=== PATIENT | female | born 1940 | race Caucasian/White ===

== ENCOUNTER 2018-04-01 23:36 | Inpatient (IN) | payer MEDICARE, OTHER ==
[~2018-04-01] VITALS: Ht 170.2 cm; Wt 142.5 kg
[~2018-04-01 23:36] MED LIST: ASPIR 8181 MG; CALCIUM CARBON500 MG PO; FLORASTOR250 MG; GABAPENTIN100 MG; LISINOPRIL10 MG PO; NEURONTIN100 MG PO; ZYRTEC10 M3
--- OUTSIDE RECORDS SUMMARY | 2018-04-01 23:38 | XMS REPORT | Encounter Summary ---
Author Organization Unknown Address [address] [place] [address] Phone [phone] Care Team Providers Care Director Oracle Name Role Phone Oscar Meyers 3 [phone] Reason for Visit Medical Complaint Instructions 1. Acute sinusitis sinusitis: care instructions doxycycline hyclate 100 mg tablet 2. Productive cough benzonatate 200 mg capsule 3. Essential hypertension high blood pressure: care instructions 4. Body mass index 30+ - obesity body mass index: care instructions Discussion Note Pt is in NAD; Verbalizes understanding of all instructions with no questions at this time. Plan of Care Patient Instructions Stop Robitussin. Take fluticasone over the counter as needed for congestion. [place] one spray in each nostril twice a day. Take a warm, steamy shower, blow your nose thereafter, and spray in each nostril. Tilt your head up for about 10 seconds and breath through your mouth. Do not sniff or snort the medication in or else the medication will go to your throat and not be absorbed appropriately. Take over the counter Xyzal as directed by Dr Meyers for allergy like symptoms like runny nose, sneezing and watery eyes. Start antibiotic as directed and wear sunscreen if symptoms do not improve in 5-7 days. Take medications as prescribed and follow up with a PCP within a week if symptoms worsen as discussed. Recommend monitor BP at home and document, bring BP log to PCP for review. Recommend follow a low sodium/fat/carb diet and exercise as tolerated. Reminders Provider Appointments None recorded. Lab None recorded. Referral None recorded. Procedures None recorded. Surgeries None recorded. Imaging None recorded. Medications Name Start Date amlodipine 5 mg tablet aspirin 81 mg tablet,delayed release benzonatate 200 mg capsule Take 1 capsule 3 times a day by oral route as needed. cranberry 400 mg capsule Take by oral route. d-mannose doxycycline hyclate 100 mg tablet Take 1 tablet twice a day by oral route as directed for 10 days. fluticasone 50 mcg/actuation nasal spray,suspension gabapentin 100 mg capsule losartan 50 mg tablet Xyzal 5 mg tablet Take 1 tablet every day by oral route. Medications Administered None recorded. Vitals Height Weight BMI Blood Pressure 5 ft 6 in 235 lbs 37.9 kg/m2 129/69 mm[Hg] Lab Results None recorded. Allergies Code Code System Name Reaction Severity Status Onset 2669 RxNorm Codeine Angioedema Active Penicillins Angioedema Active Problems Name Status Onset Date Source Body Mass Index 30+ - Obesity Active 02/27/2018 Neuropathy Active 02/27/2018 Essential Hypertension Active 02/27/2018 Acute Sinusitis Active 02/27/2018 Productive Cough Active 02/27/2018 Procedures Date Name Performed by Tonsillectomy and Adenoidectomy Information not available Cholecystectomy Information not available Vaccine List None recorded. Social History Smoking Status Never Smoker Past Encounters 02/27/2018 Acute Sinusitis; Productive Cough; Essential Hypertension; Body Mass Index 30+ - Obesity Adriana Woods, [facility]-C: [address] [place] [address], Ph. History of Present Illness Qsien-Tnmgfqypki-Cdgqmfu Reported By: Patient HPI: Location: head/sinuses, chest. Quality: productive cough, nasal/sinus congestion. Duration: 2days. Severity: moderate. Onset/Timing: gradual; recurrent. Context: no sick contacts, no foreign travel, non-smoker; Pt has h/o chronic sinusitis. Modifying factors: OTC medication. Associated Symptoms: no sputum production, no shortness of breath, no wheezing, no change in number of pillows needed to sleep at night, no sweats, no significant weight gain, no significant weight loss, no morning cough, no sore throat, no vomiting, no diarrhea, no rash, no nausea, no fever, no muscle aches, no headache; nasal congestion, sinus pressure and pain, purulent nasal drainage, hoarseness, and productive cough Review of Systems:ROS as noted in the HPI Review of Systems Basic Reported By: Patient Physical Exam Adult Basic, Adult Female Complete Reported By: Patient Constitutional: General Appearance: obese. Level of Distress: NAD. Ambulation: in wheelchair Psychiatric: Mental Status: active and alert. Orientation: to time, to place, to person Aul-Lome-Jfnxw-Throat: Ears: no lesions on external ear, no outer ear tenderness, EACs clear, TMs clear. Nose: no lesions on external nose, nares patent, no septal deviation, nasal passages clear, sinus tenderness. Lips, Teeth, and Gums: no mouth or lip ulcers, no bleeding gums, normal dentition. Oropharynx: moist mucous membranes, no erythema, no exudates, tonsils absent Neck: Lymph Nodes: no cervical LAD Lungs: Respiratory effort: no dyspnea, no tachypnea, no use of accessory muscles, no intercostal retractions. Auscultation: breath sounds normal Cardiovascular: Heart Auscultation: RRR, no murmurs Neurologic: Gait and Station: normal gait, normal station
--- OUTSIDE RECORDS SUMMARY | 2018-04-01 23:38 | XMS REPORT | Encounter Summary ---
Author Organization Unknown Address [address] [place] [address] Phone [phone] Reason for Visit Medical Complaint Instructions 1. Acute sinusitis sinusitis: care instructions azithromycin 250 mg tablet 2. Pain in throat sore throat: care instructions rapid strep group A, throat 3. Feeling feverish rapid flu (A+B) Discussion Note: None recorded. Plan of Care Patient Instructions consider a trial of flonase and zyrtec if you havent already. follow up pcp Reminders Provider Appointments None recorded. Lab Rapid Strep Group a, Throat 12/28/2016 [facility] Rapid Flu (A+B) 12/28/2016 [facility] Referral None recorded. Procedures None recorded. Surgeries None recorded. Imaging None recorded. Medications Name Start Date aspirin 81 mg tablet,delayed release azithromycin 250 mg tablet TAKE 2 TABLETS (500 MG) BY ORAL ROUTE ONCE DAILY FOR 1 DAY THEN 1 TABLET (250 MG) BY ORAL ROUTE ONCE DAILY FOR 4 DAYS gabapentin 100 mg capsule lisinopril 20 mg tablet Medications Administered None recorded. Vitals Height Weight BMI Blood Pressure 5 ft 6 in 235 lbs 37.9 kg/m2 132/80 mm[Hg] Lab Results Date Name Specimen Result Interpretation Description Value Range Status Address Rapid Flu (A+B) Influenza a negative [facility]: [address] [place] [address] Influenza B negative [facility]: [address] [place] [address] Rapid Strep Group a, Throat Result negative [facility]: [address] [place] [address] Swab Location Left and Right tonsillar pillars [facility]: [address] [place] [address] Allergies Code Code System Name Reaction Severity Status Onset 2670 RxNorm Codeine Angioedema Active Penicillins Angioedema Active Problems None recorded. Procedures Date Name Performed by Tonsillectomy and Adenoidectomy Information not available Cholecystectomy Information not available Vaccine List None recorded. Social History Smoking Status Never Smoker Past Encounters 12/28/2016 Acute Sinusitis; Pain in Throat; Feeling Feverish EMERITA Marti-C: [address] [place] [address], Ph. History of Present Illness Umbth-Xnlalmiaqc-Kbkaxui Reported By: Patient HPI: Location: head/sinuses. Quality: productive cough, colored phlegm, nasal/sinus congestion, dry cough. Duration: 5days. Severity: moderate. Onset/Timing: gradual. Context: no sick contacts, no foreign travel, non-smoker. Modifying factors: OTC medication. Associated Symptoms: no shortness of breath, no wheezing, no change in number of pillows needed to sleep at night, no sweats, no significant weight gain, no significant weight loss, no morning cough, no sore throat, no vomiting, no diarrhea, no rash, no nausea, no fever, no muscle aches, no headache, yellow sputum Review of Systems:ROS as noted in the HPI Review of Systems Basic Reported By: Patient Physical Exam Adult Basic, Adult Female Complete Reported By: Patient Constitutional: General Appearance: obese. Level of Distress: NAD. Ambulation: ambulating normally Psychiatric: Mental Status: active and alert Eyes: Lids and Conjunctivae: non-injected, no discharge Ivb-Suea-Cgrst-Throat: Ears: no lesions on external ear, no outer ear tenderness, EACs clear, TMs clear. Hearing: no hearing loss. Nose: no lesions on external nose, sinus tenderness, nasal discharge--purulent; congestion. Lips, Teeth, and Gums: no mouth or lip ulcers. Oropharynx: moist mucous membranes, no erythema, no exudates, tonsils not enlarged Neck: Neck: trachea midline. Lymph Nodes: no cervical LAD Lungs: Respiratory effort: no dyspnea, no tachypnea, no use of accessory muscles, no intercostal retractions. Auscultation: breath sounds normal Cardiovascular: Heart Auscultation: RRR, no murmurs
--- OUTSIDE RECORDS SUMMARY | 2018-04-01 23:38 | XMS REPORT | Continuity of Care Document ---
Author Author [facility] Address Unknown Phone Unavailable Problems Problem Status Onset Date Classification Date Reported Comments Source Body mass index 30+ - obesity 02/27/2018 Diagnosis 02/27/2018 [facility] Essential hypertension 02/27/2018 Diagnosis 02/27/2018 [facility] Productive cough 02/27/2018 Diagnosis 02/27/2018 [facility] Acute sinusitis 02/27/2018 Diagnosis 02/27/2018 [facility] Body Mass Index 30+ - Obesity 02/27/2018 Problem 02/27/2018 [facility] Neuropathy 02/27/2018 Problem 02/27/2018 [facility] Essential Hypertension 02/27/2018 Problem 02/27/2018 [facility] Acute Sinusitis 02/27/2018 Problem 02/27/2018 [facility] Productive Cough 02/27/2018 Problem 02/27/2018 [facility] Pain in throat 12/28/2016 Diagnosis 12/28/2016 [facility] Feeling feverish 12/28/2016 Diagnosis 12/28/2016 [facility] Medications Medication Details Route Status Patient Instructions Ordering Provider Order Date Source Amlodipine 5 MG Oral Tablet amlodipine 5 mg tablet Active [facility] Aspirin 81 MG Delayed Release Oral Tablet aspirin 81 mg tablet,delayed release Active [facility] benzonatate 200 MG Oral Capsule benzonatate 200 mg capsule Take 1 capsule 3 times a day by oral route as needed. Active [facility] Cranberry preparation 400 MG Oral Capsule cranberry 400 mg capsule Take by oral route. Active [facility] d-mannose d-mannose Active [facility] doxycycline hyclate 100 MG Oral Tablet doxycycline hyclate 100 mg tablet Take 1 tablet twice a day by oral route as directed for 10 days. Active [facility] Fluticasone propionate 0.05 MG/ACTUAT Metered Dose Nasal [place] fluticasone 50 mcg/actuation nasal spray,suspension Active [facility] gabapentin 100 MG Oral Capsule gabapentin 100 mg capsule Active [facility] Losartan Potassium 50 MG Oral Tablet losartan 50 mg tablet Active [facility] levocetirizine dihydrochloride 5 MG Oral Tablet [Xyzal] Xyzal 5 mg tablet Take 1 tablet every day by oral route. Active [facility] Azithromycin 250 MG Oral Tablet azithromycin 250 mg tablet TAKE 2 TABLETS (500 MG) BY ORAL ROUTE ONCE DAILY FOR 1 DAY THEN 1 TABLET (250 MG) BY ORAL ROUTE ONCE DAILY FOR 4 DAYS Active [facility] Lisinopril 20 MG Oral Tablet lisinopril 20 mg tablet Active [facility] Allergies, Adverse Reactions, Alerts Substance Category Reaction Severity Reaction type Status Date Reported Comments Source Penicillins Angioedema Allergy to substance 12/28/2016 [facility] Codeine Angioedema Allergy to substance 12/28/2016 [facility] Immunizations Immunization Date Given Site Status Last Updated Comments Source Results Order Name Results Value Reference Range Date Interpretation Comments Source Influenza A negative 12/28/2016 [facility] Influenza B negative 12/28/2016 [facility] RESULT negative 12/28/2016 [facility] SWAB LOCATION Left and Right tonsillar pillars 12/28/2016 [facility] Vital Signs Vital Sign Value Date Comments Source Diastolic (mm Hg) 69 02/27/2018 [facility] Height 66 02/27/2018 [facility] Systolic (mm Hg) 129 02/27/2018 [facility] Weight 235 02/27/2018 [facility] Diastolic (mm Hg) 80 12/28/2016 [facility] Height 66 12/28/2016 [facility] Systolic (mm Hg) 132 12/28/2016 [facility] Weight 235 12/28/2016 [facility] Encounters Location Location Details Encounter Type Encounter Number Reason For Visit Attending Provider ADM Date DC Date Status Source [place] - [facility] - [id number] Celeste-C: [address] [place] [address], Ph. [phone] [id number] William Bartlett 12/28/2016 [facility] [place] - [facility] - [id number] Danielle-C: [address] [place] [address], Ph. [id number] Adriana Woods 02/27/2018 [facility] Procedures Procedure Code Date Perfomer Comments Source Tonsillectomy and Adenoidectomy [facility] Cholecystectomy [facility]
--- OUTSIDE RECORDS SUMMARY | 2018-04-01 23:39 | XMS REPORT ---
Author Author [facility] Address Unknown Phone Unavailable Care Team Providers Care Tobacco Packer Name Role Phone NGHIA BERNAL Unavailable Unavailable Problems This patient has no known problems. Allergies, Adverse Reactions, Alerts This patient has no known allergies or adverse reactions. Medications This patient has no known medications. Results Test Description Test Time Test Comments Text Results Atomic Results Result Comments CHEST XRAY LINE PLACEMENT [place] [address] Patient Name: SARAH VILLA MR #: [id number] : 1940 Age/Sex: 76/F Req #: [id number] Adm Physician: NGHIA BERNAL MD Ordered by: AMINA ABARCA MD Report #: [id number] Location: [facility] Room/Bed: [facility] Procedure: [id number] DX/CHEST XRAY LINE PLACEMENT Exam Date: 01/09/17 Exam Time: 2036 REPORT STATUS: Signed CHEST XRAY LINE PLACEMENT, 01/09/2017 8:30 PM Technique: CHEST XRAY LINE PLACEMENT Comparison: 01/05/2017 Clinical history: PICC line placement Findings: Limited by body habitus and portable technique. Impression: 1. Lines/Tubes: Right PICC placement tip overlying the distal SVC. 2. Stable enlarged cardiomediastinal silhouette. 3. Central vascular congestion. 3. No effusion or pneumothorax. Signed by: Dr Luis Pineda MD on 01/09/2017 8:54 PM Dictated By: LUIS PINEDA MD 53 Transcribed By: CICI on 01/09/172053 COPY TO: AMINA ABARCA MD CHEST SINGLE (PORTABLE) [place] [id number] Patient Name: SARAH VILLA MR #: [id number] : 1940 Age/Sex: 76/F Req #: [id number] Adm Physician: Ordered by: EDDA ZEPEDA MD Report #: [id number] Location: ER Room/Bed: Procedure: [id number] DX/CHEST SINGLE (PORTABLE) Exam Date: 01/06/17 Exam Time: 0100 REPORT STATUS: Signed CHEST SINGLE (PORTABLE), 01/06/2017 12:23 AM Technique: CHEST SINGLE (PORTABLE) Comparison: 04/16/2016 Clinical history: Weakness Findings: See Impression Impression: 1. Stable mildly enlarged cardiomediastinal silhouette on portable technique. 2. No consolidation. 3. No pleural effusion or pneumothorax. Signed by: Dr Luis Pineda MD on 01/06/2017 1:44 AM Dictated By: LUIS PINEDA MD 3 Transcribed By: CICI on 01/06/17143 COPY TO: EDDA ZEPEDA MD
[2018-04-02] VITALS (7 sets, daily range): BP systolic 128–159; BP diastolic 60–68
[2018-04-02] MEDS ORDERED: MULTI-VITAMIN1 EACH PO (00:20)
[2018-04-02] MEDS ORDERED: LO-DOSE ASPIRIN81 MG PO (00:20)
[2018-04-02] MEDS ORDERED: LOSARTAN POTASS50 MG PO (00:20)
[2018-04-02] MEDS ORDERED: FLUTICASONE PRO16 GM (00:20)
[2018-04-02] MEDS ORDERED: AMLODIPINE BESYL5 MG PO (00:20)
[2018-04-02] MEDS ORDERED: GABAPENTIN100 MG PO (00:20)
[2018-04-02 00:54] LABS: BASOPHILS % 0.3 % (0.0-1.0); EOSINOPHILS # (AUTO) 0.1 (0.0-0.4); EOSINOPHILS % 0.6 % (0.0-6.0); HEMATOCRIT 38.1 % (34.2-44.1); HEMOGLOBIN 12.9 g/dL (12.0-16.0); LYMPHOCYTES # (AUTO) 1.6 (1.0-3.2); LYMPHOCYTES % 11.4 % (18.0-39.1); MEAN CORPUSCULAR HEMOGLOBIN 31.9 pg (28-32); MEAN CORPUSCULAR HGB CONC 33.9 g/dL (31-35); MEAN CORPUSCULAR VOLUME 94.1 fL (81-99); MONOCYTES # (AUTO) 1.2 (0.2-0.8); MONOCYTES % 8.1 % (4.4-11.3); NEUTROPHILS # (AUTO) 11.2 (2.1-6.9); NEUTROPHILS % 79.3 % (38.7-80.0); PLATELET COUNT 275 x10e3/uL (140-360); RED BLOOD COUNT 4.05 x10e6/uL (3.6-5.1); RED CELL DISTRIBUTION WIDTH 13.7 % (11.7-14.4)
--- NOTE | 2018-04-02 01:04 | NUR ---
IN AND OUT CATH DONE, SPECIMEN TO LAB, URINE WICK IN PLACE
[2018-04-02 01:09] LABS: BILIRUBIN,URINE NEGATIVE (NEGATIVE); CLARITY,URINE CLEAR (CLEAR); COLOR,URINE YELLOW (YELLOW); KETONES,URINE NEGATIVE (NEGATIVE); LEUKOCYTE ESTERASE ,URINE 2+ (NEGATIVE); NITRITE,URINE POSITIVE (NEGATIVE); PROTEIN,URINE DIPSTICK NEGATIVE (NEGATIVE); URINE UROBILINOGEN 0.2 mg/dL (0.2 - 1)
[2018-04-02 01:12] LABS: ALBUMIN 3.6 g/dL (3.5-5.0); ALBUMIN/GLOBULIN RATIO 1.1 (0.8-2.0); ANION GAP 14.1 mmol/L (8-16); CALCIUM 9.1 mg/dL (8.4-10.2); CREATININE, SERUM 0.93 mg/dL (0.57-1.11); POTASSIUM 4.1 mmol/L (3.5-5.1)
[2018-04-02 01:20] LABS: RBC,URINE 0-5 /HPF (0-5); WBC,URINE (MAN) >50 /HPF (0-5)
[2018-04-02 01:21] LABS: BACTERIA,URINE MANY /HPF; EPITHELIAL CELLS,URINE RARE /LPF
--- NOTE | 2018-04-02 01:28 | Diagnostic Imaging Report ---
EXAMINATION: CHEST SINGLE (PORTABLE) INDICATION: Concern for pneumonia. COMPARISON: Chest x-ray 01/06/2017 FINDINGS: AP view TUBES and LINES: None. LUNGS: Lungs are well inflated. Lungs are clear. There is no evidence of pneumonia or pulmonary edema. PLEURA: No pleural effusion or pneumothorax. HEART AND MEDIASTINUM: Stable mild enlargement of the cardiac silhouette. BONES AND SOFT TISSUES: No acute osseous lesion. Soft tissues are unremarkable. UPPER ABDOMEN: No free air under the diaphragm. IMPRESSION: No acute thoracic abnormality. Signed by: DR. Matthew Penny MD on 04/02/2018 1:25 AM
[2018-04-02] MEDS: CEFTRIAXONE SOD 1 GM/NS 50 ML 50 ML IV SCH (01:44)
[2018-04-02] MEDS ORDERED: SODIUM CHLORIDE 0.9% 1000ML 1,000 ML ONE (02:09)
[2018-04-02] MEDS ORDERED: SODIUM CHLORIDE 0.9% 1000ML 1,000 ML IV STA (02:12)
--- NOTE | 2018-04-02 02:13 | NUR ---
MD AWARE OF 92/44 BP, NS BOLUS STARTED. MD TO RE-EVAL AFTER FIRST 500CC INFUSED, FAMILY AND PT AWARE TO PUSH CALL RED WHEN 500CC INFUSED.
--- NOTE | 2018-04-02 07:40 | NUR ---
patient resting in bed, AAOX3, Not in any distress, denies any pain, call light in reach, helped her to re position
[2018-04-02] MEDS: LOSARTAN POTASSIUM 100 MG TAB PO SCH (11:10)
[2018-04-02] MEDS: AMLODIPINE BESYLATE 5 MG TAB PO SCH (11:20)
[2018-04-02] MEDS: FLUTICASONE PROPIONATE NASAL SPRAY NS SCH (12:25)
[2018-04-02] MEDS: ASPIRIN 81 MG ENTERIC COATED PO SCH (12:25)
[2018-04-02] MEDS: GABAPENTIN 100 MG CAP PO SCH (16:32)
--- NOTE | 2018-04-02 19:22 | NUR ---
Report received and walking rounds complete. Pt resting in bed and in no apparent distress. Pure wick cath to suction in place. All safety measures ensured, bed alarm on, and pt call kincaid near.
[2018-04-02] MEDS: ACETAMINOPHEN 325 MG TAB PO PRN (20:56)
[2018-04-03] VITALS (7 sets, daily range): BP systolic 127–170; BP diastolic 59–83
[2018-04-03] MEDS ORDERED: SODIUM CHLORIDE 0.9% 250ML 250 ML ONE (01:15)
[2018-04-03] MEDS: CEFTRIAXONE SOD 1 GM/NS 50 ML 50 ML IV SCH (01:34)
[2018-04-03] MEDS: AMLODIPINE BESYLATE 5 MG TAB PO SCH (09:33)
[2018-04-03] MEDS: FLUTICASONE PROPIONATE NASAL SPRAY NS SCH (09:33)
[2018-04-03] MEDS: GABAPENTIN 100 MG CAP PO SCH ×2 (09:33→16:49)
[2018-04-03] MEDS: ASPIRIN 81 MG ENTERIC COATED PO SCH (09:33)
[2018-04-03] MEDS: MULTIVITAMINS/MINERALS TAB PO SCH (09:33)
[2018-04-03] MEDS: LOSARTAN POTASSIUM 100 MG TAB PO SCH (09:33)
[2018-04-03] MEDS ORDERED: TRAMADOL HCL 50 MG TAB PO PRN (10:45)
--- NOTE | 2018-04-03 16:50 | NUR ---
Patient is cooperative and alert and oriented x 3.
[2018-04-03] MEDS: ACETAMINOPHEN 325 MG TAB PO PRN (22:21)
[2018-04-04] VITALS (9 sets, daily range): BP systolic 152–181; BP diastolic 64–79
[2018-04-04] MEDS: CEFTRIAXONE SOD 1 GM/NS 50 ML 50 ML IV SCH (01:30)
[2018-04-04 05:08] LABS: BASOPHILS % 0.3 % (0.0-1.0); EOSINOPHILS # (AUTO) 0.2 (0.0-0.4); EOSINOPHILS % 2.9 % (0.0-6.0); HEMATOCRIT 33.4 % (34.2-44.1); HEMOGLOBIN 11.9 g/dL (12.0-16.0); LYMPHOCYTES # (AUTO) 1.7 (1.0-3.2); LYMPHOCYTES % 22.8 % (18.0-39.1); MEAN CORPUSCULAR HEMOGLOBIN 32.9 pg (28-32); MEAN CORPUSCULAR HGB CONC 35.6 g/dL (31-35); MEAN CORPUSCULAR VOLUME 92.3 fL (81-99); MONOCYTES # (AUTO) 0.8 (0.2-0.8); MONOCYTES % 10.6 % (4.4-11.3); NEUTROPHILS # (AUTO) 4.6 (2.1-6.9); NEUTROPHILS % 63.1 % (38.7-80.0); PLATELET COUNT 233 x10e3/uL (140-360); RED BLOOD COUNT 3.62 x10e6/uL (3.6-5.1); RED CELL DISTRIBUTION WIDTH 13.7 % (11.7-14.4)
[2018-04-04 05:29] LABS: BLOOD UREA NITROGEN 11 mg/dL (7-26); BUN/CREATININE RATIO 14 (6-25); CALCIUM 8.8 mg/dL (8.4-10.2); CARBON DIOXIDE 26 mmol/L (22-29); CHLORIDE 103 mmol/L (98-107); CREATININE, SERUM 0.76 mg/dL (0.57-1.11); EST GLOMERULAR FILTRATION RATE > 60 ML/MIN (60-); GLUCOSE 99 mg/dL (74-118); SODIUM 138 mmol/L (136-145)
[2018-04-04] MEDS: ASPIRIN 81 MG ENTERIC COATED PO SCH (09:04)
[2018-04-04] MEDS: GABAPENTIN 100 MG CAP PO SCH ×2 (09:04→18:15)
[2018-04-04] MEDS: LOSARTAN POTASSIUM 100 MG TAB PO SCH (09:05)
[2018-04-04] MEDS: AMLODIPINE BESYLATE 5 MG TAB PO SCH (09:05)
[2018-04-04] MEDS: MULTIVITAMINS/MINERALS TAB PO SCH (09:05)
--- NOTE | 2018-04-04 09:07 | NUR ---
SOCIAL WORK INITIAL ASSESSMENT Colon Therapist to bedside to discuss plan of care with patient/family. CM/SW role and care transitions discussed. Anticipated discharge plan discussed along with duration of care. CM/SW discussed patients right to make decisions in care. CM/SW work hours given. Patient lives: IN HOUSE WITH FAMILY Admit/Transfer: VIA ED FROM HOME POA/Emergency contact: DAUGHTER MARTÍN [phone] Current/Previous Home Health: [facility] PCP/Follow-up Care: [facility] Current/Previous DME: [employer] Other Services: NONE Employment Status: RETIRED Areas of Concerns: NONE Referral Needs: NONE Education Needs: NONE IMM/KYLE given and signed (if applicable): KYLE Goal for discharge: RETURN HOME INDEPENDENTLY CM/SW left business card at the bedside with contact information. Name and number was also written on the patients whiteboard. Patient verbalized understanding of discussion. CM will follow-up with ongoing discharge and transition of care needs.
--- NOTE | 2018-04-04 09:08 | NUR ---
SOCIAL WORK INITIAL ASSESSMENT Family Services Coordinator to bedside to discuss plan of care with patient/family. CM/SW role and care transitions discussed. Anticipated discharge plan discussed along with duration of care. CM/SW discussed patients right to make decisions in care. CM/SW work hours given. Patient lives: IN HOUSE WITH MOTHER Admit/Transfer: VIA ED POA/Emergency contact: MOTHER IS EVER [phone] Current/Previous Home Health: NONE PCP/Follow-up Care: RAMÓN BUT DUE TO NO INSURANCE NOT CURRENTLY A PT Current/Previous DME: NONE Other Services: NONE Employment Status: CURRENTLY UNEMPLOYED Areas of Concerns: REHAB OPTIONS Referral Needs: GAVE PACKET OF INFORMATION WITH [employer] FOR ASSISTANCE WITH LOW TO NO INCOME TO PATIENT. RESOURCES THAT PATIENT MAY BE ABLE TO FOLLOW UP UPON DISCHARGE. PT EDUCATED ON EACH RESOURCE AND UNDERSTANDING HOW TO FOLLOW UP TO SEE IF QUALIFIED FOR EACH RESOURCE. Education Needs: [employer] IMM/KYLE given and signed (if applicable): NA Goal for discharge: RETURN HOME WITH MOTHER CM/SW left business card at the bedside with contact information. Name and number was also written on the patients whiteboard. Patient verbalized understanding of discussion. CM will follow-up with ongoing discharge and transition of care needs. Addendum: 04/04/18 at 1212 by Yumiko Marx this is incorrect information
[2018-04-04] MEDS: FLUTICASONE PROPIONATE NASAL SPRAY NS SCH (09:15)
[2018-04-04] MEDS ORDERED: MAGNESIUM HYDROXIDE 30 ML UDC PO PRN (12:45)
--- NOTE | 2018-04-04 20:45 | NUR ---
Received Pt lying in bed, HOB 45 degrees. Alert to name. Denies pain at this time. Wick catheter in place and draining, 70ml dark lu urine noted. Family at bedside. Call kincaid within reach.
[2018-04-05] VITALS: BP 141/64
[2018-04-05] MEDS: CEFTRIAXONE SOD 1 GM/NS 50 ML 50 ML IV SCH (02:02)
[2018-04-05 05:20] VITALS: BP 156/69
--- NOTE | 2018-04-05 07:01 | NUR ---
Spoke with Dr. Galdamez regarding lab results ESBL in urine. Ordered Meropenem 1gm IV every 12 hours.
[2018-04-05] MEDS ORDERED: MEROPENEM 1GM 100 ML IV SCH (07:30)
[2018-04-05 07:35] VITALS: BP 160/71
--- NOTE | 2018-04-05 07:35 | NUR ---
PATIENT IN BED RESTING WITH NO RESPIRATORY DISTRESS. NEW IV ANTIBIOTIC STARTED ORDERED. ON ISOLATION FOR ESBL IN URINE. BED IN LOWER POSITION, CALL LIGHT AT REACH.
[2018-04-05 07:37] VITALS: BP 160/71
[2018-04-05] MEDS: GABAPENTIN 100 MG CAP PO SCH ×2 (09:16→17:03)
[2018-04-05] MEDS: MULTIVITAMINS/MINERALS TAB PO SCH (09:16)
[2018-04-05] MEDS: ASPIRIN 81 MG ENTERIC COATED PO SCH (09:16)
[2018-04-05] MEDS: FLUTICASONE PROPIONATE NASAL SPRAY NS SCH (09:16)
[2018-04-05] MEDS: LOSARTAN POTASSIUM 100 MG TAB PO SCH (09:16)
[2018-04-05] MEDS: AMLODIPINE BESYLATE 5 MG TAB PO SCH (09:16)
[2018-04-05] MEDS ORDERED: MAGNESIUM HYDROXIDE 30 ML UDC PO ONE (10:30)
[2018-04-05] MEDS: ACETAMINOPHEN 325 MG TAB PO PRN (11:05)
--- NOTE | 2018-04-05 11:09 | NUR ---
PATIENT C/O CONSTIPATION, NOTIFIED. NEW ORDER RECEIVED AND IMPLEMENTED.
[2018-04-05 11:29] VITALS: BP 177/74
--- NOTE | 2018-04-05 14:00 | NUR ---
Visit made by the Spiritual Care Department Pastoral Visitor, Bernadine Kohli. PV provided pastoral presence, prayer, hospitality, and supportive listening. Pastoral Visitor informed pt/family of the scope of [facility] and availability. MARCELLE PAT Discharge Rn Spiritual Care Department O: [phone] Pager: [phone] ([phone] number calling from)
--- NOTE | 2018-04-05 15:28 | NUR ---
[facility] eval ordered today. Pt signed choice letter earlier for [facility] and Shonna Hollins was notified. Pt has been accepted and will be going to room [address] Dr[address] Nancy Jett accepting. Notified nurse Esdras RN and PAKO Santos RN Initiated MOT and pt signed, and he signed ambulance choice letter. Paper work left with Esdras EDMONDSON. Transferring to via EMS to : [address] [place], [place] [address] fax [phone] Marj Hollins, liaison: [phone]
--- NOTE | 2018-04-05 15:32 | NUR ---
PATIENT EXERCISED IN ROOM WITH PHYSICAL THERAPY. REPOSITIONED IN BED WITH CALL LIGHT AT REACH.
[2018-04-05 15:58] VITALS: BP 154/68
--- NOTE | 2018-04-05 18:51 | NUR ---
PATIENT TRANSFERRED TO [facility]. REPORT CALLED AND GIVEN TO RECEIVING NURSE. IV TO RIGHT FOREARM INTACT AND PATENT. PATIENT' AWARE OF TRANSFER. ALL PERSONAL ITEMS TAKEN WITH PATIENT. LEFT UNIT ON STRETCHER PER AMBULANCE
== END 2018-04-05 18:50 | DRG 872 ==
LOC: ER 23:36 → INTOOBSV 04-02 01:52 → ERHOLD 04-02 01:52 → IMCU 04-02 03:39 → OBSVTOIN 04-05 01:52
DX: A41.9 Sepsis, unspecified organism (principal); N30.01 Acute cystitis with hematuria; L03.116 Cellulitis of left lower limb; Z68.42 Body mass index [BMI] 45.0-49.9, adult; G62.9 Polyneuropathy, unspecified; Z88.0 Allergy status to penicillin; Z88.2 Allergy status to sulfonamides; Z88.8 Allergy status to other drugs, medicaments and biological substances; I10 Essential (primary) hypertension; E66.01 Morbid (severe) obesity due to excess calories; B96.20 Unspecified Escherichia coli [E. coli] as the cause of diseases classified elsewhere; Z16.12 Extended spectrum beta lactamase (ESBL) resistance
CPT/HCPCS: 36415; 71045; 80048; 80053; 81001; 85025; 87086; 87186; 96365; 97139; 99284; G0378; J0696; J7030; J7050

== ENCOUNTER 2019-12-18 09:36 | Observation (INO) | payer MEDICARE, OTHER ==
[~2019-12-18] VITALS: Ht 170.2 cm; Wt 142.4 kg
[~2019-12-18 09:36] MED LIST changes: +AMLODIPINE BESYL5 MG PO; +FLUTICASONE PRO16 GM; +GABAPENTIN100 MG PO; +LO-DOSE ASPIRIN81 MG PO; +LOSARTAN POTASS50 MG PO; +MULTI-VITAMIN1 EACH PO
[2019-12-18 11:12] LABS: CLARITY,URINE CLEAR (CLEAR); COLOR,URINE YELLOW (YELLOW); LEUKOCYTE ESTERASE ,URINE TRACE (NEGATIVE)
[2019-12-18 11:13] LABS: BILIRUBIN,URINE NEGATIVE (NEGATIVE); KETONES,URINE NEGATIVE (NEGATIVE); NITRITE,URINE POSITIVE (NEGATIVE); PROTEIN,URINE DIPSTICK NEGATIVE (NEGATIVE); URINE UROBILINOGEN 0.2 mg/dL (0.2 - 1)
[2019-12-18 11:33] LABS: BACTERIA,URINE FEW /HPF; EPITHELIAL CELLS,URINE FEW /LPF; RBC,URINE 0-5 /HPF (0-5); WBC,URINE (MAN) 0-5 /HPF (0-5)
[2019-12-18] MEDS ORDERED: CEPHALEXIN 500 MG CAP PO ONE (12:30)
[2019-12-18 13:30] LABS: BASOPHILS % 0.3 % (0.0-1.0); EOSINOPHILS # (AUTO) 0.1 (0.0-0.4); EOSINOPHILS % 0.8 % (0.0-6.0); HEMATOCRIT 48.8 % (34.2-44.1); HEMOGLOBIN 15.4 g/dL (12.0-16.0); LYMPHOCYTES % 22.8 % (18.0-39.1); MEAN CORPUSCULAR HEMOGLOBIN 30.1 pg (28-32); MEAN CORPUSCULAR HGB CONC 31.6 g/dL (31-35); MEAN CORPUSCULAR VOLUME 95.3 fL (81-99); MONOCYTES # (AUTO) 0.7 (0.2-0.8); MONOCYTES % 7.8 % (4.4-11.3); NEUTROPHILS # (AUTO) 6.1 (2.1-6.9); NEUTROPHILS % 68.1 % (38.7-80.0); PLATELET COUNT 319 x10e3/uL (140-360); RED BLOOD COUNT 5.12 x10e6/uL (3.6-5.1); RED CELL DISTRIBUTION WIDTH 13.2 % (11.7-14.4)
[2019-12-18] MEDS ORDERED: protegra PEG (14:56)
[2019-12-18] MEDS ORDERED: LEVOCETIRIZINE D5 MG PO (14:56)
[2019-12-18] MEDS ORDERED: METHENAMINE HIPP1 GM PO (14:56)
[2019-12-18 16:25] LABS: ALBUMIN 3.7 g/dL (3.5-5.0); ALBUMIN/GLOBULIN RATIO 1.1 (0.8-2.0); ANION GAP 16.5 mmol/L (8-16); CALCIUM 9.6 mg/dL (8.4-10.2); CREATININE, SERUM 0.98 mg/dL (0.57-1.11); POTASSIUM 4.5 mmol/L (3.5-5.1)
[2019-12-18] MEDS: CEFTRIAXONE SOD 1 GM/NS 50 ML 50 ML IV SCH (17:46)
[2019-12-18 20:00] VITALS: BP 122/65
[2019-12-18 21:05] VITALS: BP 122/65
[2019-12-19 04:00] VITALS: BP 122/73
[2019-12-19 07:42] LABS: ALANINE AMINOTRANSFERASE 24 IU/L (0-55); ALKALINE PHOSPHATASE 58 IU/L (40-150); ANION GAP 14.3 mmol/L (8-16); BLOOD UREA NITROGEN 17 mg/dL (7-26); BUN/CREATININE RATIO 19 (6-25); CALCIUM 9.1 mg/dL (8.4-10.2); CARBON DIOXIDE 27 mmol/L (22-29); CHLORIDE 102 mmol/L (98-107); CREATININE, SERUM 0.88 mg/dL (0.57-1.11); EST GLOMERULAR FILTRATION RATE > 60 ML/MIN (60-); GLUCOSE 111 mg/dL (74-118); POTASSIUM 4.3 mmol/L (3.5-5.1); SODIUM 139 mmol/L (136-145)
[2019-12-19 07:49] LABS: BASOPHILS % 0.4 % (0.0-1.0); EOSINOPHILS # (AUTO) 0.1 (0.0-0.4); EOSINOPHILS % 1.6 % (0.0-6.0); HEMOGLOBIN 13.1 g/dL (12.0-16.0); LYMPHOCYTES # (AUTO) 1.7 (1.0-3.2); LYMPHOCYTES % 22.6 % (18.0-39.1); MEAN CORPUSCULAR HEMOGLOBIN 30.5 pg (28-32); MEAN CORPUSCULAR VOLUME 95.3 fL (81-99); MONOCYTES # (AUTO) 0.7 (0.2-0.8); MONOCYTES % 10.1 % (4.4-11.3); NEUTROPHILS # (AUTO) 4.8 (2.1-6.9); PLATELET COUNT 294 x10e3/uL (140-360); RED CELL DISTRIBUTION WIDTH 13.2 % (11.7-14.4)
[2019-12-19 08:01] VITALS: BP 128/76
[2019-12-19 08:11] LABS: ALBUMIN 3.4 g/dL (3.5-5.0); ALBUMIN/GLOBULIN RATIO 1.1 (0.8-2.0)
[2019-12-19] MEDS: ASPIRIN 81 MG ENTERIC COATED PO SCH ×2 (11:25→11:26)
[2019-12-19] MEDS: LOSARTAN POTASSIUM 100 MG TAB PO SCH ×2 (11:25→11:27)
[2019-12-19] MEDS: GABAPENTIN 100 MG CAP PO SCH ×2 (11:26→11:27)
[2019-12-19] MEDS: AMLODIPINE BESYLATE 5 MG TAB PO SCH ×2 (11:26→11:27)
[2019-12-19 12:10] VITALS: BP 139/65
[2019-12-19] MEDS ORDERED: DOXYCYCLINE HY100 MG PO (14:20)
[2019-12-19 16:00] VITALS: BP 139/70
== END 2019-12-19 18:38 | disposition home or self-care (01) ==
LOC: ER 09:40 → ERHOLD 12:53 → MED/SURG2 17:13
DX: N39.0 Urinary tract infection, site not specified (principal); L03.116 Cellulitis of left lower limb; I10 Essential (primary) hypertension; J40 Bronchitis, not specified as acute or chronic; Z74.01 Bed confinement status; Z11.59 Encounter for screening for other viral diseases; R53.2 Functional quadriplegia; B96.20 Unspecified Escherichia coli [E. coli] as the cause of diseases classified elsewhere
CPT/HCPCS: 36415 ×2; 71045; 80053 ×2; 81001; 85025 ×2; 87086; 87186; 97139; 97162; 97530; 99284; G0378 ×2; J0696; U0002

== ENCOUNTER → 2023-05-06 | Day surgery (SDC) | payer MEDICARE, OTHER ==
[2023-05-03 12:50] LABS: BASOPHILS % 0.4 % (0.0-1.0); EOSINOPHILS # (AUTO) 0.3 (0.0-0.4); EOSINOPHILS % 4.4 % (0.0-6.0); HEMATOCRIT 46.7 % (34.2-44.1); LYMPHOCYTES # (AUTO) 2.7 (1.0-3.2); LYMPHOCYTES % 35.2 % (18.0-39.1); MEAN CORPUSCULAR HEMOGLOBIN 29.9 pg (28-32); MEAN CORPUSCULAR VOLUME 99.8 fL (81-99); MONOCYTES # (AUTO) 0.7 (0.2-0.8); MONOCYTES % 8.8 % (4.4-11.3); NEUTROPHILS # (AUTO) 3.8 (2.1-6.9); NEUTROPHILS % 51.1 % (38.7-80.0); PLATELET COUNT 283 x10e3/uL (140-360); RED BLOOD COUNT 4.68 x10e6/uL (3.6-5.1); RED CELL DISTRIBUTION WIDTH 13.5 % (11.7-14.4); WHITE BLOOD COUNT 7.52 x10e3/uL (4.8-10.8)
[~2023-05-06] MED LIST changes: +AZO D-MANNOSE500 MG PO; +BALANCED SALT SOLN (OPTH) 15 ML BTL IO ONE; +CHONDR SU A NA/HYALUR SOD 1 EACH KIT IO ONE; +CRANBERRY200 MG; +CYCLOPENTOLATE HCL 1% OPTH SOLN 2ML BTL ONE; +DOXYCYCLINE HY100 MG PO; +FENTANYL CITRATE/PF 100MCG/2 ML INJ ONE; +FLUCONAZOLE100 MG PO; +LEVOCETIRIZINE D5 MG PO; +METHENAMINE HIPP1 GM PO; +MIDAZOLAM HCL 2 MG/2 ML VIAL ONE; +ZINC; +protegra PEG
[2023-05-06] MEDS: OR PHACO EYE KIT ONE (13:30)
[2023-05-06] MEDS: LACTATED RINGER'S 1,000 ML ONE (13:30)
[2023-05-06] MEDS: PREOP PHACO EYE KIT ONE (13:31)
[2023-05-06 13:55] VITALS: BP 160/90; PULSE 63; RESP 17; TEMP 97.5; O2SAT 98
== END | disposition home or self-care (01) ==
LOC: OR 10:27
PROVIDERS: ATTEND Ophthalmology
DX: H25.11 Age-related nuclear cataract, right eye (principal); I10 Essential (primary) hypertension; E78.5 Hyperlipidemia, unspecified; E66.01 Morbid (severe) obesity due to excess calories; Z01.810 Encounter for preprocedural cardiovascular examination; Z01.812 Encounter for preprocedural laboratory examination; Z79.82 Long term (current) use of aspirin; Z79.899 Other long term (current) drug therapy
CPT/HCPCS: 36415; 66984; 85025; 93005; J2250; J3010; J7121; V2632